=== PATIENT | male | born 1950 | race Caucasian/White ===

== ENCOUNTER 2017-09-21 11:51 | Inpatient (IN) | payer MEDICARE ==
[2017-09-21] MEDS ORDERED: niCARdipine 20MG In NaCl 20 MG/200 ML BAG ONE (12:04)
--- NOTE | 2017-09-21 12:41 | CT ---
CT BRAIN: HISTORY: History of lung cancer, left-sided weakness, paralysis. FINDINGS: Noncontrast-enhanced CT images of the brain are obtained. There is some loss of the mcgowan-white differentiation in the right frontotemporal region. This may re present possible right MCA area of infarction. This may also be positional as the patient is not in a true axial position in the CT scanner. No definite evidence of intracranial mass lesions. IMPRESSION: Possible moderately large right middle cerebral artery distribution area of mcgowan-white differentiatio n loss concerning for large right middle cerebral artery infarction. Correlate with MRI with diffusi on weighted sequences. POS: [facility]
[2017-09-21 12:49] LABS: PTT 33.4 SEC (22.9-36.1); Prothrombin Time 20.7 SEC (12.0-14.7)
[2017-09-21 12:53] LABS: ALT (SGPT) 107 U/L (8-55); AST (SGOT) 99 U/L (5-34); Alkaline Phosphatase 683 U/L (40-150); Anion Gap 18 mmol/L (10-20); BUN (Urea Nitrogen) 32 mg/dL (8.4-25.7); Bilirubin, Total 2.7 mg/dL (0.2-1.2); CK (CPK) 650 U/L (30-200); Calc. Creatinine Clearance 0 mL/min (70-130); Carbon Dioxide 23 mmol/L (23-31); Chloride 97 mmol/L (98-107); Estimated GFR-MDRD 75; Protein, Total 5.7 g/dL (5.8-8.1)
[2017-09-21 12:57] LABS: Troponin I 0.145 ng/mL (< 0.028)
[2017-09-21 13:04] LABS: Band 37 % (5-11); Hematocrit 46.7 % (42.0-52.0); Mean Platelet Volume 9.1 fL (7.4-10.4); Metamyelocyte 1 % (0-0); Neutrophil 56 % (42-75); Polychromasia SLIGHT = 2-3 cells (100X) (0-2/hpf); Red Blood Cell (RBC) Count 5.36 mill/uL (4.70-6.10); Target Cells SLIGHT = 2-5 cells (100X) (0-1/hpf); Toxic Granulation SLIGHT; Vacuoles SLIGHT; White Blood Cell (WBC) Count 30.7 thou/uL (4.8-10.8)
--- NOTE | 2017-09-21 13:05 | CT ---
CTA CAROTID AND INTRACRANIAL CTA WELL BRAIN PERFUSION STUDY: DATE: 09/21/17. FINDINGS: Two-D and 3D reconstructed images performed on an independent 3D work station. In addition, brain pe rfusion with CT images also obtained. The patient has small bilateral pleural effusions. The thoracic aorta is unremarkable. The right br achiocephalic artery is patent. The right common carotid artery is patent. The left common carotid artery and bilateral internal carotid arteries are also patent. INTRACRANIAL CTA: Good flow is seen in the anterior cerebral arteries bilaterally. The left middle cerebral artery has good flow. The right middle cerebral artery has decreased caliber. Fluid is seen in some of the an terior branches; however, the more posterior and higher right MCA branches do not fill normally. Th is is compatible with right posterior MCA M2 and M3 distribution area of stroke. There is some mcgowan- white differentiation loss in this area. The posterior cerebral arteries bilaterally are patent. Brain perfusion demonstrates a definite asymmetric flow in the right posterior MCA distribution with some asymmetry of flow with some areas of increased mean transit time in the posterior right MCA dist ribution. This same area demonstrates concordant areas of significant reduction of flow on both bloo d volume and blood flow images. This suggests an area of core infarction without evidence of signifi cant penumbra. This suggests markedly reduced blood flow and little salvageable brain in this region . IMPRESSION: Moderately large area of acute infarction with small to no significant penumbra and fairly large area of core infarction in the posterior right middle cerebral artery distribution. POS: [facility]
[2017-09-21] MEDS ORDERED: Aspirin 300 MG Suppository ONE (13:31)
[2017-09-21] MEDS ORDERED: Acetaminophen 650 MG Suppository PR PRN (14:01)
[2017-09-21] MEDS ORDERED: hydrALAZINE 20 MG/ML VIAL SLOW IVP PRN (14:01)
[2017-09-21] MEDS ORDERED: Acetaminophen 325 MG TAB PO PRN (14:01)
[2017-09-21] MEDS ORDERED: Bisacodyl 5 MG TAB PO PRN (14:01)
--- NOTE | 2017-09-21 14:28 | RAD ---
AP VIEW OF CHEST: Date: 09/21/17 INDICATION: Rule out infection. FINDINGS: No air space consolidation is evident. There is a left chest wall subclavian port present. No pleural effusion or pneumothorax evident. No acute osseous abnormality is evident. IMPRESSION: No acute cardiopulmonary abnormality. POS: [facility]
[2017-09-21] MEDS: Sodium Chloride 0.9% 1,000 ML IV SCH (14:53)
--- NOTE | 2017-09-21 14:56 | HP ---
PRIMARY CARE PHYSICIAN: Filemon Larios M.D. CHIEF COMPLAINT: Unresponsiveness. HISTORY OF PRESENT ILLNESS: Mr. Rosenberg is a 67-year-old gentleman who was seen at [facility] on 09/21/2017. The patient is currently unable to provide any history. History was obtained from the emergency room physician, review of medical records and discussion with the patient 's family by the bedside. Mr. Rosenberg was diagnosed with lung cancer in 07/2016. He has undergone multiple rounds of chemothera py. He reportedly had stabilization of the lung lesion, but his liver lesion was expanding. He is a lso known to have bony metastases. He was seen by pain specialist at [facility], Dr. Munoz and has been on pain medications ove r the last 1-1/2 weeks. Yesterday, he went to get Xgeva injection. He did not receive the injection because he was found to have leukocytosis. He was started on levofloxacin for suspected infection. He was last seen to be normal around 10:00 p.m. last night. Today morning, he was found to be unresp onsive, lying on his left side. EMS was called and patient was transferred to the hospital. He was also aphasic. REVIEW OF SYSTEMS: Could not be completed because patient is aphasic. PAST MEDICAL HISTORY: Significant for metastatic lung cancer with metastasis to liver and bone, hear ing and vision deficits, hypertension and benign prostate hypertrophy. PAST SURGICAL HISTORY: Significant for left total hip replacement. PSYCHIATRIC HISTORY: Significant for depression. SOCIAL HISTORY: No history of tobacco use, alcohol use or recreational drug use. He lives at his br other's house. FAMILY HISTORY: Significant for cerebrovascular accident in his father. CODE STATUS: He is DNR. ALLERGIES: No known drug allergies. CURRENT MEDICATIONS: Include tamsulosin 0.4 mg daily, oxycodone 2.5 mg every 4 hours as needed, levo floxacin 500 mg daily, and sertraline 25 mg daily. PHYSICAL EXAMINATION: GENERAL: Mr. Rosenberg is awake, alert, not in acute distress. VITAL SIGNS: He has blood pressure of 116/88. His blood pressure at 11:57 hours today was 231/210. Pulse is 93. Respiratory rate is 20. He is saturating 100% on room air. He is afebrile. EYES: He has scleral icterus. No conjunctival pallor. ENT: Dry mucosal membranes. No oropharyngeal erythema or exudates. NECK: Nontender, no thyromegaly, trachea midline. RESPIRATORY: Accessory muscles of breathing are not active. Chest wall movements are symmetric bila terally. LUNGS: Clear to auscultation without wheeze, rhonchi or crepitations. CARDIOVASCULAR: S1 and S2 are heard, regular. Peripheral pulses are palpable. No carotid bruit, no pericardial rub. ABDOMEN: Soft, nontender, bowel sounds heard, no hepatomegaly, no splenomegaly. NEUROLOGIC: Full neurologic examination was not possible secondary to the patient's noncooperation. Pupils are equal and reactive to light. There is no facial droop. He has left-sided hemineglect. Power is 2/5 in the left upper extremity and left lower extremity, 5/5 in the right upper extremity a nd right lower extremity. Deep tendon reflexes are 2+. Plantar reflex downgoing on the right side, Babinski positive on the left side. SKIN: He has bruises on the back as well as over his left upper extremity. MUSCULOSKELETAL: Power as described above in the extremities. PSYCHIATRIC: Unable to assess mood, affect or orientation to person, place or time. LYMPHATIC: No cervical lymphadenopathy. IMAGING AND LABORATORY DATA: Mr. Rosenberg's labs and investigations were reviewed. He had an electroc ardiogram, which showed normal sinus rhythm with ST depressions in leads V3 and V4. CT scan of the h ead done without contrast showed possible moderately large right middle cerebral artery distribution area of mcgowan white differentiation loss concerning for large right middle cerebral artery infarction. He also had CT angiogram of the head and neck, which showed moderately large area of acute infarcti on with small to no significant penumbra and fairly large area of core infarction in the posterior ri ght MCA distribution. The right common carotid artery, left common carotid artery and bilateral inte rnal carotid arteries are patent. Laboratory investigation show leukocytosis with 13,700 white cells, of which 56% are neutrophils, nor mal hemoglobin, decreased platelet count of 55,000, INR 1.7, decreased sodium of 134, normal potassiu m, elevated blood urea nitrogen of 32, normal creatinine, elevated total bilirubin of 2.7, elevated A ST of 99, elevated ALT of 107, elevated alkaline phosphatase of 683, elevated creatinine kinase 650, indeterminate troponin I of 0.145 and decreased albumin of 2.7. ASSESSMENT AND PLAN: Mr. Rosenberg is a pleasant 67-year-old gentleman seen at [facility] on 09/21/2017. His problem list includes: 1. Ischemic cerebrovascular accident. He has ischemic cerebrovascular accident of the right MCA. H dixon will be admitted to the hospital for further management. He will be monitored on telemetry. He wi ll be started on aspirin. He was on aspirin 81 mg in the past, but stopped it when he had nosebleed while receiving chemotherapy. He has not had aspirin in several weeks. Will restart and observe for nosebleeds. We will also start him on statin and recheck his liver function tests, which are alread y abnormal secondary to metastasis. Will also check fasting lipid profile. We will check 2D echocar diogram and obtain Neurology consult. It is unclear whether patient's management will change if we o btain an MRI, I will leave the decision to the Neurology Service. 2. Hyponatremia: Mild, we will recheck. 3. Abnormal liver function tests: Most likely secondary to known liver metastases. We will recheck LFTs. 4. Leukocytosis: The patient is afebrile at this time. We will check urine and rule out urinary tr act infection. We will also check chest x-ray. We will check blood cultures. If there is any evide nce of infection or if patient spikes a fever, we will consider starting antibiotics. 5. Thrombocytopenia: Unknown, acuity unclear, we will recheck. 6. Hypertension: Monitor vital signs, titrate antihypertensives as needed. 7. Dehydration: The patient is clinically dehydrated. We will start him on intravenous fluids. 8. Indeterminate troponin I: Will trend troponin. 9. Benign prostatic hypertrophy: Continue tamsulosin when patient is able to take oral medications. Many thanks for allowing me to participate in your patient's care. Please feel free to contact me wi th any questions or concerns. LEVEL OF RISK: Moderate. LEVEL OF COMPLEXITY: Moderate.
[2017-09-21 15:42] VITALS: BMI 22.3
[2017-09-21 16:59] LABS: Bilirubin Small (Negative); Blood, Urine Moderate (Negative); Glucose, Urine (Dipstick) Negative (Negative); Ketone, Urine Trace mg/dL (Negative); Nitrite Negative (Negative); Protein, Urine (Dipstick) 30 mg/dL (Neg-Trace)
[2017-09-21 17:02] LABS: Bacteria/HPF None Seen HPF (None Seen); RBC/HPF 0-3 HPF (0-3); Squamous Epithelial 0-3 HPF (0-3); WBC/HPF 0-3 HPF (0-3)
[2017-09-21 17:13] LABS: Hyaline Casts/LPF 0-3 HYALINE CAST LPF (0-3 Hyaline)
[2017-09-21] MEDS ORDERED: ISOVUE-370 76%-LOCM 1 ML ONE (17:27)
[2017-09-21] MEDS: Atorvastatin Calcium 10 MG TAB PO SCH (20:53)
--- NOTE | 2017-09-21 21:52 | CON ---
DATE OF CONSULTATION: 09/21/2017 REFERRING PROVIDER: Guy Valenzuela M.D. REASON FOR CONSULTATION: Left-sided weakness. HISTORY OF PRESENT ILLNESS: Mr. Rosenberg is a pleasant 67-year-old male who has been concern ed for evaluation of left-sided weakness. History is obtained from patient's brother who was present at bedside as well as patient's dictated H&P note. Apparently, the patient has a history of metasta tic lung cancer which is stage IV. He has a chronic pain secondary to this. He was recently prescri bed a new medication for his pain, which was making him very drowsy and sleepy yesterday. He had osito e to see pain management doctor who had performed CBC and was found to have leukocytosis for which he was started on antibiotics. He was in his normal state of health until 10:00 last night. This morn ing, they found him unresponsive. He was nonverbal and not able to move his left side, which prompte d them to bring him to the [facility]. On arrival here, he had a CT head without cont rast done which showed hypodensity, loss of dissociation in mcgowan white matter on the right MCA distri bution suggestive of acute right MCA stroke. He is now being admitted for further treatment for this . PAST MEDICAL HISTORY: Significant for metastatic lung cancer with metastasis to liver and bone, hear ing and vision deficits, hypertension and benign prostatic hypertrophy. PAST SURGICAL HISTORY: Left total hip replacement. PSYCHIATRIC HISTORY: Depression. SOCIAL HISTORY: He does not smoke cigarettes, drink alcohol or use illicit drugs. He currently live s at his brother's house. FAMILY HISTORY: Significant for stroke in his father. CURRENT MEDICATIONS: Please review MAR. ALLERGIES: No known drug allergies. REVIEW OF SYSTEMS: Unable to perform. PHYSICAL EXAMINATION: VITAL SIGNS: Blood pressure of 141/81, pulse of 91, temperature of 96.8, respirations of 20, O2 sats 97% on room air. GENERAL: Cachectic appearing male resting in bed in no apparent distress. NEUROLOGIC: Speech and language are mute and nonverbal. He does not follow any commands. Cranial n erves: Pupils are 3 mm and reactive. He has a right gaze preference. He does blink to threat on pawel th sides. There is a left facial droop noted. Motor exam showed flaccid left upper and left lower e xtremity. He is spontaneously moving his right upper and right lower extremity with a 5/5 hand heel sorter on the right side. His strength in the left upper and left lower extremity is 0/5. He does withdraw to pain on the left lower extremity, but not on the left upper extremity. Deep tendon reflexes, juanita sk reflexes on the left upper and left lower extremity. Babinski plantar responses extensor on the l eft and flexion on the right. Gait and Romberg coordination could not be tested. LABORATORY DATA: Reviewed, which included CBC, coag panel, CMP, troponin, CK-MB. Urinalysis which i s significant for WBC of 30.7, platelet count of 55, INR 1.7, PT of 20.7 and PTT of 33.4. Sodium 134 , glucose of 164, AST of 99, ALT of 107, alkaline phosphatase of 683. CPK of 650, CK-MB of 10.8, tro ponin of 0.145. Urinalysis showed moderate blood, trace ketones, 30 protein, otherwise unremarkable. IMAGING STUDIES: CT head without contrast was reviewed, which showed moderate hypodensity and loss o f mcgowan white differentiation on the right MCA distribution suggestive of acute ischemic infarct. IMPRESSION: 1. Acute right middle cerebral artery distribution ischemic infarct. 2. Left-sided weakness, due to #1. 3. Dysarthria, due to #1. ASSESSMENT AND PLAN: Mr. Rosenberg is a pleasant 67-year-old male who presented with the acut e onset of left-sided weakness and being nonverbal. He is found to have loss of mcgowan white matter di fferentiation on the right MCA distribution on the CAT scan. This would suggest acute ischemic infar ct. Given his history of metastatic lung cancer, this could also be metastasis to the brain. At thi s time, I would recommend obtaining MRI brain without contrast. I would recommend consulting PT, OT, speech therapy. He will be n.p.o. until further cleared by speech therapy. I have discussed with miguelangel nesbitt about the findings of the CT head and further plan. Thank you for your consultation.
[2017-09-22] MEDS: Sodium Chloride 0.9% 1,000 ML IV SCH ×2 (04:19→20:40)
[2017-09-22 06:02] LABS: Band 7 % (5-11); Hematocrit 48.5 % (42.0-52.0); Mean Platelet Volume 10.4 fL (7.4-10.4); Neutrophil 80 % (42-75); White Blood Cell (WBC) Count 37.2 thou/uL (4.8-10.8)
[2017-09-22 06:10] LABS: Anion Gap 14 mmol/L (10-20); BUN (Urea Nitrogen) 36 mg/dL (8.4-25.7); Calc. Creatinine Clearance 64 mL/min (70-130); Calcium 7.5 mg/dL (7.8-10.44); Carbon Dioxide 25 mmol/L (23-31); Chloride 102 mmol/L (98-107); Cholesterol 172 mg/dl (< 200 Desired); Estimated GFR-MDRD 69; LDL Cholesterol, Calculated 126 mg/dL
[2017-09-22] MEDS ORDERED: Aspirin 325 mg Enteric Coated Tablet PO SCH (09:00)
[2017-09-22] MEDS ORDERED: Enoxaparin Sodium 40 MG/0.4 ML SYRINGE SC SCH (09:00)
[2017-09-22] MEDS ORDERED: Vancomycin HCl 1 GM in Premix Bag 1 BAG IVPB SCH ×5 (09:30→10:30)
--- NOTE | 2017-09-22 10:48 | PDOC.PN ---
- Subjective Encounter Start Date: 09/22/17 Encounter Start Time: 07:00 Pt seen for followup re: ischemic CVA. Lethargic, not answering questions. Unable to complete ROS. - Objective MAR Reviewed: Yes Vital Signs & Weight: Vital Signs (12 hours) Temp Pulse Resp BP Pulse Ox 09/22/17 08:00 98.8 F 116 H 24 H 128/88 95 09/22/17 04:00 99.5 F 120 H 20 128/81 95 09/22/17 00:00 99.5 F 113 H 20 128/80 95 I&O: 09/21/17 09/22/17 09/23/17 06:59 06:59 06:59 Intake Total 840 Output Total 251 Balance 589 Result Diagrams: 09/22/17 05:03 09/22/17 05:03 EKG Reviewed by me: Yes (Tele: NSR) Phys Exam - Physical Examination Lethargic HEENT: moist MMs Scleral icterus Neck: supple Respiratory: no wheezing, no rales, no rhonchi, clear to auscultation bilateral Cardiovascular: RRR Gastrointestinal: soft L hemiplegia Deviation from normal: Unable to assess Deviation from normal: Diaphoretic Dx/Plan (1) Ischemic cerebrovascular accident (CVA) Code(s): I63.9 - CEREBRAL INFARCTION, UNSPECIFIED Status: Acute (2) Sepsis Code(s): A41.9 - SEPSIS, UNSPECIFIED ORGANISM Status: Suspected (3) HTN (hypertension) Code(s): I10 - ESSENTIAL (PRIMARY) HYPERTENSION Status: Chronic (4) BPH (benign prostatic hyperplasia) Code(s): N40.0 - BENIGN PROSTATIC HYPERPLASIA WITHOUT LOWER URINRY TRACT SYMP Status: Chronic - Plan plan discussed w/ family, continue antibiotics, PT/OT, speech therapy, out of bed/ambulate, DVT proph w/lovenox * . No clear source of sepsis, ? bacteremia, will start vanc and Zosyn. Appreciate neurology consult. Pt awaiting MRI. Monitor vital signs and titrate antihypertensives as needed. Review of Systems - Medications/Allergies Allergies/Adverse Reactions: Allergies Allergy/AdvReac Type Severity Reaction Status Date / Time No Known Drug Allergies Allergy Verified 09/21/17 17:00 Medications: Current Medications Acetaminophen (Tylenol) 650 mg IN Q4H PRN PRN Reason: Headache/Fever or Pain Acetaminophen (Tylenol) 650 mg PO Q4H PRN PRN Reason: Headache/Fever or Pain Aspirin (Ecotrin) 325 mg PO DAILY [facility] Atorvastatin Calcium (Lipitor) 10 mg PO HS [facility] Last Admin: 09/21/17 20:53 Dose: Not Given Bisacodyl (Dulcolax) 10 mg PO DAILYPRN PRN PRN Reason: Constipation Enoxaparin Sodium (Lovenox) 40 mg SC 0900 [facility] Hydralazine HCl (Apresoline) 10 mg SLOW IVP Q4H PRN PRN Reason: BP > 220/110 Sodium Chloride (Normal Saline 0.9%) 1,000 mls @ 70 mls/hr IV .[id number] [facility] Last Admin: 09/22/17 04:19 Dose: 1,000 mls Piperacillin Sod/Tazobactam (Sod 4.5 gm/ Sodium Chloride) 100 mls @ 200 mls/hr IVPB 0400,1200,2000 [facility] Vancomycin HCl 1 gm/ Device 200 mls @ 200 mls/hr IVPB 1030 [facility] Stop: 09/22/17 11:29 Last Admin: 09/22/17 10:35 Dose: 200 mls Vancomycin HCl 1 gm/ Device 200 mls @ 200 mls/hr IVPB 1000,2200 [facility] Miscellaneous Medication (Pharmacy To Dose) 0 each IVPB ASDIR PRN PRN Reason: Pharmacy to Dose VANCOMYCIN
--- NOTE | 2017-09-22 11:56 | MRI ---
MRI BRAIN WITHOUT CONTRAST: TECHNIQUE: Multiplanar, multisequential imaging of brain obtained. HISTORY: CVA. Left-sided weakness. COMPARISON: Correlation is made to CT of 09/21/17. FINDINGS: Large area of increased FLAIR signal is seen involving the right cerebral hemisphere. This involves right frontal and parietal lobe cortex. This area exhibits restricted diffusion indicating a large r ight MCA distribution infarct. There are other small focal areas of restricted diffusion which were seen in both cerebral hemisphere s. There is a focal area of restricted diffusion in the left occipital lobe cortex as well as some t iny seen in both occipital lobes. There are also numerous foci of restricted diffusion seen in both cerebellar hemispheres. In additio n, there is an area of restricted diffusion in the left parasylvian region and there are numerous tin y foci of restricted diffusion seen in the left cerebral hemisphere are cortical and subcortical. Th ere are other scattered tiny foci seen in the right cerebral hemisphere separate from the large area of infarction. These numerous foci would indicate embolic phenomenon affecting both cerebral hemisph eres. The large right hemispheric infarct exhibits cytotoxic edema and produces mild mass effect with sligh t midline shift to the left measuring in the 2 mm range. The intracranial internal carotid arteries, proximal cerebral arteries and basilar artery show flow v oids. IMPRESSION: 1. There is a large area of restricted diffusion in the right middle cerebral artery distribution co nsistent with a large right hemispheric infarct corresponding to recent CT. 2. There are numerous other foci of restricted diffusion seen throughout both cerebral hemispheres a nd in the posterior fossa involving both cerebellar hemispheres. The numerous foci seen bilaterally would suggest an embolic phenomenon. Please correlate clinically. POS: [facility]
[2017-09-22] MEDS ORDERED: Aspirin 300 MG Suppository PR SCH (13:30)
[2017-09-22] MEDS: Piperacillin/Tazobactam 4.5 GM in Sodium Chloride 0.9% 100 ML IVPB SCH ×2 (13:34→20:05)
[2017-09-22] MEDS: Atorvastatin Calcium 10 MG TAB PO SCH (20:06)
[2017-09-22] MEDS: Vancomycin HCl 1 GM in Premix Bag 1 BAG IVPB SCH (21:46)
[2017-09-23] MEDS: Sodium Chloride 0.9% 1,000 ML IV SCH (00:34)
[2017-09-23] MEDS: Piperacillin/Tazobactam 4.5 GM in Sodium Chloride 0.9% 100 ML IVPB SCH ×3 (03:58→22:06)
[2017-09-23 05:52] LABS: Anion Gap 18 mmol/L (10-20); BUN (Urea Nitrogen) 46 mg/dL (8.4-25.7); Calc. Creatinine Clearance 57 mL/min (70-130); Calcium 7.1 mg/dL (7.8-10.44); Carbon Dioxide 21 mmol/L (23-31); Chloride 107 mmol/L (98-107); Estimated GFR-MDRD 59
[2017-09-23 06:15] LABS: Mean Platelet Volume 14.6 fL (7.4-10.4)
[2017-09-23 06:41] LABS: Band 8 % (5-11); Hematocrit 46.2 % (42.0-52.0); Metamyelocyte 1 % (0-0); Neutrophil 81 % (42-75); Reactive Lymphocytes 1 % (0-10); Red Blood Cell (RBC) Count 5.35 mill/uL (4.70-6.10); White Blood Cell (WBC) Count 39.4 thou/uL (4.8-10.8)
[2017-09-23] MEDS: Vancomycin HCl 1 GM in Premix Bag 1 BAG IVPB SCH ×2 (08:59→23:09)
[2017-09-23] MEDS ORDERED: Aspirin 300 MG Suppository PR SCH (09:00)
[2017-09-23] MEDS: Aspirin 300 MG Suppository PR SCH (09:52)
--- NOTE | 2017-09-23 10:34 | PDOC.PN ---
- Subjective Encounter Start Date: 09/23/17 Encounter Start Time: 07:00 Pt seen for followup re: ischemic CVA. Lethargic, nonverbal, unable to complete ROS. - Objective MAR Reviewed: Yes Vital Signs & Weight: Vital Signs (12 hours) Temp Pulse Resp BP Pulse Ox 09/23/17 10:18 102 H 20 09/23/17 08:35 98 F 111 H 24 H 09/23/17 07:32 98 F 111 H 24 H 117/83 99 09/23/17 04:45 98.1 F 110 H 28 H 112/73 91 L 09/23/17 01:45 98.4 F 110 H 24 H 129/77 95 Weight Admit Weight 151 lb Weight 154 lb 6.4 oz I&O: 09/22/17 09/23/17 09/24/17 06:59 06:59 06:59 Intake Total 840 1714 Output Total 251 Balance 589 1714 Result Diagrams: 09/23/17 04:56 09/23/17 04:56 EKG Reviewed by me: Yes (Tele: sinus tachycardia) Phys Exam - Physical Examination Nonverbal HEENT: moist MMs Respiratory: clear to auscultation bilateral S1, S2, reg, tachy Gastrointestinal: soft Musculoskeletal: pulses present L hemiparesis Psychiatric: normal affect Skin: no rash Dx/Plan (1) Ischemic cerebrovascular accident (CVA) Code(s): I63.9 - CEREBRAL INFARCTION, UNSPECIFIED Status: Acute (2) Sepsis Code(s): A41.9 - SEPSIS, UNSPECIFIED ORGANISM Status: Suspected (3) HTN (hypertension) Code(s): I10 - ESSENTIAL (PRIMARY) HYPERTENSION Status: Chronic (4) BPH (benign prostatic hyperplasia) Code(s): N40.0 - BENIGN PROSTATIC HYPERPLASIA WITHOUT LOWER URINRY TRACT SYMP Status: Chronic - Plan continue antibiotics, PT/OT, out of bed/ambulate, DVT proph w/SCDs * . BP controlled, pt has sinus tachycardia. Leucocytosis worsening, no clear source of infection, will consult ID for opinion and help with management. Thrombocytopenia worse today. Pt is not on heparin or Lovenox. Will recheck platelets tomorrow. If worsening, will consult hematology (pt known to have bone mets). Continue IV Zosyn and vancomycin for now, await cultures. Review of Systems - Medications/Allergies Allergies/Adverse Reactions: Allergies Allergy/AdvReac Type Severity Reaction Status Date / Time No Known Drug Allergies Allergy Verified 09/21/17 17:00 Medications: Current Medications Acetaminophen (Tylenol) 650 mg WI Q4H PRN PRN Reason: Headache/Fever or Pain Acetaminophen (Tylenol) 650 mg PO Q4H PRN PRN Reason: Headache/Fever or Pain Aspirin (Aspirin) 300 mg WI DAILY [facility] Last Admin: 09/23/17 09:52 Dose: 300 mg Atorvastatin Calcium (Lipitor) 10 mg PO HS [facility] Last Admin: 09/22/17 20:06 Dose: Not Given Bisacodyl (Dulcolax) 10 mg PO DAILYPRN PRN PRN Reason: Constipation Hydralazine HCl (Apresoline) 10 mg SLOW IVP Q4H PRN PRN Reason: BP > 220/110 Sodium Chloride (Normal Saline 0.9%) 1,000 mls @ 70 mls/hr IV .[id number] [facility] Last Admin: 09/23/17 00:34 Dose: 1,000 mls Piperacillin Sod/Tazobactam (Sod 4.5 gm/ Sodium Chloride) 100 mls @ 200 mls/hr IVPB 0400,1200,2000 [facility] Last Admin: 09/23/17 03:58 Dose: 100 mls Vancomycin HCl 1 gm/ Device 200 mls @ 200 mls/hr IVPB 1000,2200 [facility] Last Admin: 09/23/17 08:59 Dose: 200 mls Miscellaneous Medication (Pharmacy To Dose) 0 each IVPB ASDIR PRN PRN Reason: Pharmacy to Dose VANCOMYCIN
--- NOTE | 2017-09-23 16:13 | ULT ---
BILATERAL LOWER EXTREMITY VENOUS DUPLEX EXAM: History: Bilateral leg edema and pain. FINDINGS: Deep veins of both lower extremities evaluated with ultrasound and doppler. Color doppler with spectr al analysis and compression performed. Deep veins of both lower extremities exhibit normal blood flow and compression. No evidence of DVT. IMPRESSION: No evidence of lower extremity DVT. POS: [facility]
--- NOTE | 2017-09-23 18:24 | CON ---
DATE OF CONSULTATION: 09/23/2017 REASON FOR CONSULTATION: Neutrophilia. HISTORY OF PRESENT ILLNESS: A 67-year-old who has a history of lung cancer with metastases to bone and liver and had been receiving chemotherapy under [facility] oncologist supervision through a left-sided IJ tunneled port and was in his usual state, living with family until the day before admission when he was noticed to have leukocytosis. He was given levofloxacin for suspected infection and then was found unresponsive in his house by family members. EMS was activated and brought him to [facility] Emergency Room and he was admitted. Initial findings showed a BP 116/88 and respiratory rate 20 and pulse 93, blood pressure 230 systolic, O2 sat 100%, and temperature was normal. In the initial exam, there was a left-sided neglect, lateral nystagmus. Neck was supple. Lung findings showed clear lungs. Heart exam was normal. Abdomen appeared normal and there was a left-sided paresis. Strength on the right side was preserved. The patient had a head CT which showed a large MCA infarct and had a brain MRI which demonstrated large area of restricted diffusion in right middle cerebral artery distribution and then numerous other foci of restricted diffusion in both right and left cerebral hemispheres. The patient was given aspirin, Lipitor, Apresoline, Zosyn, and vancomycin. He currently is obtunded. He does not interact with examiner. His brother is in the room. There has been no seizure activity reported. No episode of aspiration. Before this, patient had no evidence of fever, chills, and no localizing symptoms until this event. PAST MEDICAL HISTORY: Metastatic lung cancer with liver and bone mets, hypertension, and BPH. PAST SURGICAL HISTORY: Left total hip replacement. SOCIAL HISTORY: The patient never smoked in his life. He does have a history of exposure to asbestos in the past in the workplace and in his home. ALLERGIES: None. CURRENT MEDICATIONS: Include Zosyn, vancomycin, atorvastatin, aspirin, and acetaminophen. FAMILY HISTORY: Noncontributory. PHYSICAL EXAMINATION: VITAL SIGNS: T-max 100.2 and now 100, blood pressure 122/77, pulse 104, respirations 28, and O2 sat 92%. SKIN: Shows no areas of skin breakdown. He has a port in the left subclavian location, no abnormalities noted. Peripheral IV access. No lymphadenopathy. The patient has a right gaze preference with some nystagmus. Pupils are equal and reactive. Oral cavity moist. NECK: Supple. LUNGS: Symmetric, clear breath sounds. CARDIOVASCULAR: S1, S2, regular rate with a soft aortic murmur. ABDOMEN: Soft. Not distended or tender. No ascites. No bladder distention. GENITOURINARY: No genital abnormalities. EXTREMITIES: No joint inflammatory activity, left hemiparesis. NEUROLOGIC: Plantar responses are indifferent, right and left side. Trace edema in lower extremities. Pulses are diminished in dorsalis pedis. No interaction with the examiner, does not follow commands. LABORATORY DATA: The latest labs, the white cell count is up to 39.4, hemoglobin 14.6, platelets 29,000, 81% neutrophils. Chemistry with creatinine 1.21. Sodium 142, AST 99, ALT 107, alkaline phosphatase 83. Urinalysis with 0- 3 wbc's. Microbiology was thus far negative blood cultures at 48 hours, negative urine culture. Reports include also a chest x-ray with left chest wall subclavian port. No air space consolidation noted. ASSESSMENT: 1. Lung cancer with liver and bone metastases. 2. Port for chemotherapy. 3. Left middle cerebral artery distribution cerebrovascular accident with also multiple areas of restricted diffusion suggestive of embolic phenomena, right and left hemisphere. 4. Leukemoid reaction. DISCUSSION: Differential diagnoses includes leukemoid reaction associated with metastatic malignancy with the possibility of embolic cerebrovascular accident associated with tumor emboli. The other possibility would be evidently endocarditis with septic emboli or paradoxical embolization associated with deep vein thrombosis and pulmonary embolism, which is less likely. Tumor embolism is a rare cause of cerebrovascular accident occurring most commonly with primary or metastatic neoplasms of the lung. If the blood cultures remain negative, I would discontinue antimicrobial therapy and consider palliative care. If blood cultures turn positive, then he would require NGA to evaluate possibility of endocarditis. We will check duplex ultrasound of lower extremities to evaluate for DVT. LISHAD
[2017-09-23 21:16] LABS: Vancomycin, Trough 21.4 ug/mL
[2017-09-23] MEDS: Atorvastatin Calcium 10 MG TAB PO SCH (22:07)
[2017-09-23] MEDS: Vancomycin HCl 750 MG in Sodium Chloride 0.9% 250 ML 250 ML IVPB SCH (23:41)
[2017-09-24] MEDS: Piperacillin/Tazobactam 4.5 GM in Sodium Chloride 0.9% 100 ML IVPB SCH ×3 (03:38→20:15)
[2017-09-24 05:52] LABS: Hematocrit 48.2 % (42.0-52.0); Mean Platelet Volume 18.2 fL (7.4-10.4); Red Blood Cell (RBC) Count 5.57 mill/uL (4.70-6.10)
[2017-09-24 06:00] LABS: Anion Gap 19 mmol/L (10-20); BUN (Urea Nitrogen) 53 mg/dL (8.4-25.7); Calc. Creatinine Clearance 52 mL/min (70-130); Carbon Dioxide 18 mmol/L (23-31); Chloride 111 mmol/L (98-107); Estimated GFR-MDRD 53
[2017-09-24 06:08] LABS: Band 6 % (5-11); Neutrophil 90 % (42-75)
[2017-09-24] MEDS: Sodium Chloride 0.9% 1,000 ML IV SCH ×2 (06:13→20:15)
[2017-09-24 07:58] VITALS: BP 102/60
[2017-09-24] MEDS: Aspirin 300 MG Suppository PR SCH (09:46)
--- NOTE | 2017-09-24 10:07 | ULT ---
BILATERAL LOWER EXTREMITY ARTERIAL DOPPLER ULTRASOUND: DATE: 09/24/17. COMPARISON: None. HISTORY: Weak pulses with mottled discoloration of bilateral lower extremities. TECHNIQUE: Multiplanar, mcgowan scale sonographic imaging of the arterial structures of bilateral lower extremities obtained with color flow and spectral analysis. FINDINGS: Detailed assessment of bilateral lower extremity arterial structures is slightly limited secondary to persistent patient motion artifact during this exam. Secondary to the patient constantly moving dur ing the exam for the performing staff counselor, the dorsalis pedis artery could not be assessed on eithe r side. The STATOR WINDER, profunda femoral artery, SFA, popliteal artery, LFO, and REMNANT SORTER are all patent bilaterally. VESSEL PSV(CM/S) WAVEFORM RIGHT LOWER EXTREMITY STATOR WINDER 80 triphasic Profunda femoral artery 98 triphasic SFA proximal 104 triphasic SFA mid 79 Triphasic SFA distal 68 Biphasic Popliteal artery 56 Biphasic FLO 23 Biphasic REMNANT SORTER 42 Biphasic LEFT LOWER EXTREMITY: STATOR WINDER 76 triphasic Profunda femoral artery 115 triphasic SFA proximal 85 triphasic SFA mid 88 Triphasic SFA distal 82 Triphasic Popliteal artery 66 Triphasic FLO 60 Biphasic REMNANT SORTER 45 Biphasic IMPRESSION: Patent arterial structures bilaterally. Neither Dorsalis pedis artery could be assessed secondary to patient motion. POS: [facility]
[2017-09-24] MEDS: Vancomycin HCl 750 MG in Sodium Chloride 0.9% 250 ML 250 ML IVPB SCH (11:38)
[2017-09-24 12:15] VITALS: TEMP 99.3
[2017-09-24] MEDS ORDERED: Morphine 4 MG/ML VIAL SLOW IVP PRN (12:27)
[2017-09-24] MEDS ORDERED: Morphine 4 MG/ML VIAL ONE (12:29)
--- NOTE | 2017-09-24 14:05 | PDOC.PN ---
- Subjective Encounter Start Date: 09/24/17 Encounter Start Time: 14:01 Pt seen for followup re: ischemic CVA. Nonverbal, unable to complete ROS. - Objective MAR Reviewed: Yes Vital Signs & Weight: Vital Signs (12 hours) Temp Pulse Resp BP Pulse Ox 09/24/17 11:58 99.3 F 124 H 35 H 95 09/24/17 07:58 98.7 F 115 H 20 102/60 92 L 09/24/17 07:39 98.2 F 116 H 24 H 09/24/17 04:37 98.2 F 116 H 28 H 119/76 92 L Weight Admit Weight 151 lb Weight 156 lb 11.2 oz I&O: 09/23/17 09/24/17 09/25/17 06:59 06:59 06:59 Intake Total 1714 2078 Balance [id number] Result Diagrams: 09/24/17 05:15 09/24/17 05:15 EKG Reviewed by me: Yes (Tele: sinus tachycardia) Phys Exam - Physical Examination Mild respiratory distress HEENT: moist MMs Neck: no nodes Respiratory: clear to auscultation bilateral tachypneic S1, S2, reg, tachy Gastrointestinal: soft L hemiparesis Deviation from normal: Bo LE mottling Dx/Plan (1) Ischemic cerebrovascular accident (CVA) Code(s): I63.9 - CEREBRAL INFARCTION, UNSPECIFIED Status: Acute (2) Sepsis Code(s): A41.9 - SEPSIS, UNSPECIFIED ORGANISM Status: Suspected (3) HTN (hypertension) Code(s): I10 - ESSENTIAL (PRIMARY) HYPERTENSION Status: Chronic (4) BPH (benign prostatic hyperplasia) Code(s): N40.0 - BENIGN PROSTATIC HYPERPLASIA WITHOUT LOWER URINRY TRACT SYMP Status: Chronic - Plan * . Palliative care team discussing with family. Family agreeable for morphine to control pain, shortness of breath. Has bo LE mottling. Prognosis guarded. Review of Systems - Medications/Allergies Allergies/Adverse Reactions: Allergies Allergy/AdvReac Type Severity Reaction Status Date / Time No Known Drug Allergies Allergy Verified 09/21/17 17:00 Medications: Current Medications Acetaminophen (Tylenol) 650 mg MN Q4H PRN PRN Reason: Headache/Fever or Pain Acetaminophen (Tylenol) 650 mg PO Q4H PRN PRN Reason: Headache/Fever or Pain Aspirin (Aspirin) 300 mg MN DAILY [facility] Last Admin: 09/24/17 09:46 Dose: 300 mg Atorvastatin Calcium (Lipitor) 10 mg PO HS [facility] Last Admin: 09/23/17 22:07 Dose: Not Given Bisacodyl (Dulcolax) 10 mg PO DAILYPRN PRN PRN Reason: Constipation Hydralazine HCl (Apresoline) 10 mg SLOW IVP Q4H PRN PRN Reason: BP > 220/110 Sodium Chloride (Normal Saline 0.9%) 1,000 mls @ 70 mls/hr IV .[id number] [facility] Last Admin: 09/24/17 06:13 Dose: 1,000 mls Piperacillin Sod/Tazobactam (Sod 4.5 gm/ Sodium Chloride) 100 mls @ 200 mls/hr IVPB 0400,1200,2000 [facility] Last Admin: 09/24/17 11:38 Dose: 100 mls Vancomycin HCl 750 mg/ Sodium (Chloride) 250 mls @ 250 mls/hr IVPB 1200,2359 [facility] Last Admin: 09/24/17 11:38 Dose: 250 mls Miscellaneous Medication (Pharmacy To Dose) 0 each IVPB ASDIR PRN PRN Reason: Pharmacy to Dose VANCOMYCIN Morphine Sulfate (Morphine) 2 mg SLOW IVP Q1H PRN PRN Reason: Pain 2ND LINE
[2017-09-24] MEDS: Morphine 4 MG/ML VIAL SLOW IVP PRN ×3 (14:56→20:14)
--- NOTE | 2017-09-24 22:07 | PDOC.EVN ---
Event Note - Event Note Event Note: CALLED TO SEE PATIENT BECAUSE OF UNRESPONSIVENESS. NO SIGNS OF SPONTANEOUS RESPIRATIONS OR CIRCULATION. NO CORNEAL REFLEX NO PULSES PALPATED NO CARDIAC SOUNDS ASCULTATED. NO RESPONSE TO STERNAL RUB. PATIENT AT 10:02 PM BY KEN FAJARDO MD
[2017-09-24] MEDS: Atorvastatin Calcium 10 MG TAB PO SCH (22:25)
--- NOTE | 2017-09-25 10:25 | DS ---
DATE OF ADMISSION: 09/21/2017 DATE OF : 09/24/2017 PRIMARY CARE PHYSICIAN: Filemon Larios M.D. DIAGNOSES: 1. Ischemic cerebrovascular accident in the right middle cerebral artery distribution. 2. Leukemoid reaction versus sepsis. HOSPITAL COURSE: Mr. Rosenberg is a pleasant 67-year-old gentleman who was admitted to [facility] on 09/21/2017 for acute ischemic cerebrovascular accident. MRI of the brain on showed large area of restricted diffusion in the right MCA distribution consistent with a lar ge right hemispheric infarct. He also had numerous other foci of restricted diffusion throughout bot h cerebral hemispheres and in the posterior foci involving both the cerebellar hemispheres. A 2D ech ocardiogram on 09/21/2017 showed left ventricular ejection fraction of 50%-55%, mildly dilated left a trium, moderate mitral regurgitation and moderate aortic regurgitation. He had CT angiogram of the h ead and neck at the time of admission, which did not show any significant carotid stenosis. He also had elevated white count. He was started on broad spectrum antibiotics for possible sepsis. He was seen by the Infectious Diseases specialist, Dr. Ham. At the time of this dictation, all cultures have been negative. He was seen by Neurology Service. He continued to decline during this hospitalization. Palliative Care service was consulted. After d iscussion with family, family wished to only provide comfort measures and no active treatments. This is taking into account his poor prognosis as well as medical comorbidity of metastatic lung cancer. He was started on comfort measures. He on 09/24/2017. Many thanks for allowing me to participate in your patient's care. Please feel free to contact me wi th any questions or concerns.
== END 2017-09-25 00:24 | disposition expired | DRG 64 ==
LOC: ERS 11:51 → EEVIPCON 11:51 → 2SE 14:36
PROVIDERS: ADMIT Internal Medicine; ATTEND Internal Medicine
DX: I63.511 Cerebral infarction due to unspecified occlusion or stenosis of right middle cerebral artery (principal); A41.9 Sepsis, unspecified organism; C78.7 Secondary malignant neoplasm of liver and intrahepatic bile duct; C79.51 Secondary malignant neoplasm of bone; D69.6 Thrombocytopenia, unspecified; C34.90 Malignant neoplasm of unspecified part of unspecified bronchus or lung; E87.1 Hypo-osmolality and hyponatremia; G81.94 Hemiplegia, unspecified affecting left nondominant side; R47.01 Aphasia; Z92.21 Personal history of antineoplastic chemotherapy; Z79.891 Long term (current) use of opiate analgesic; I10 Essential (primary) hypertension; N40.0 Benign prostatic hyperplasia without lower urinary tract symptoms; Z96.642 Presence of left artificial hip joint; F32.9 Major depressive disorder, single episode, unspecified; Z66 Do not resuscitate; E86.0 Dehydration; I08.0 Rheumatic disorders of both mitral and aortic valves; Z51.5 Encounter for palliative care; Z95.828 Presence of other vascular implants and grafts; Z77.090 Contact with and (suspected) exposure to asbestos; R47.1 Dysarthria and anarthria; D72.823 Leukemoid reaction
CPT/HCPCS: 0042T; 36415; 70450; 70496; 70498; 70551; 71010; 80048; 80053; 80061; 80202; 81003; 81015; 82553; 84484; 85025; 85610; 85730; 87040; 87086; 93005; 93306; 93923; 93970; 96365; G8978-GP-CN; G8979-GP-CL; G8996-GN-CN; G8997-GN-CL; J1650; J2270; J2543; J3370; J7050